=== PATIENT | female | born 1940 | race Two or more races ===

== ENCOUNTER 2025-09-28 13:43 | Emergency (ER) | payer OTHER ==
[~2025-09-28] VITALS: Ht 154.9 cm; Wt 54.9 kg
[~2025-09-28 13:43] MED LIST: CIPRO750 MG PO; CLONAZEPAM1 MG PO; DOCUSATE SODIU100 MG PO; METHYLPRED4 MG/DOSE- PO; NEURONTIN PO; PERCOCET 5/3251 TAB PO
[2025-09-28] MEDS ORDERED: ACETAMINOPHEN 500 MG GEL..CAP PO ONE ×2 (17:00→20:53)
[2025-09-28] MEDS ORDERED: IPRATROPIUM BROMIDE 0.5 MG/2.5 ML AMPUL.NEB IH SCH (17:00)
[2025-09-28] MEDS ORDERED: METHYLPREDNISOLONE SOD SUCC 125 MG VIAL IV ONE (17:00)
[2025-09-28] MEDS ORDERED: LEVALBUTEROL HCL 1.25 MG/3 ML SOLUTION IH SCH (17:00)
[2025-09-28] MEDS ORDERED: HYDROCODONE/CHLORPHEN P-STIREX 5 ML ML PO ONE (17:00)
[2025-09-28] MEDS ORDERED: METHYLPREDNISOLONE SOD SUCC 125 MG VIAL ONE (20:50)
[2025-09-28 21:11] LABS: BASO % 0.4 % (0.1-1.2); EOS # 0.18 (0.04-0.54); EOS % 2.4 % (0.7-7.0); LYMPH # 1.40 (1.18-3.74); LYMPH % 18.7 % (19.3-53.1); MEAN PLATELET VOLUME 10.40 fl (9.4-12.4); MONO # 0.78 (0.24-0.82); MONO % 10.4 % (4.7-12.5); NEUT # 5.09 (1.56-6.13); NEUT % 67.8 % (34.0-71.1); RED CELL DISTRIBUTION WIDTH 12.6 % (11.6-14.4)
[2025-09-28 21:14] LABS: ERYTHROCYTE SEDIMENTATION RATE 45 mm/hr (0-30)
[2025-09-28 22:09] LABS: ALT/SGPT 26.0 U/L (12-78); AST/SGOT 36.0 U/L (15-37); BILIRUBIN TOTAL 0.43 mg/dL (0.3-1.2); BUN CREA RATIO 22.0 (7.0-25.0); CREATININE SERUM 1.44 mg/dL (0.55-1.02); GFR 34.51; GLOBULINA 3.8 G/DL (2.4-3.5); GLUCOSE FASTING 143.0 mg/dL (65-100); OSMOLALITY SERUM 279.0 MOSM/KG (275-295)
[2025-09-28] MEDS ORDERED: LEVALBUTEROL HCL 1.25 MG/3 ML SOLUTION IH ONE (22:15)
[2025-09-28] MEDS ORDERED: IPRATROPIUM BROMIDE 0.5 MG/2.5 ML AMPUL.NEB IH ONE (22:16)
[2025-09-28 23:20] LABS: COVID-19 AG NEGATIVE (NEGATIVE)
[2025-09-28] MEDS ORDERED: XOPENEX CO1.25 MG/0. IH (23:35)
[2025-09-28] MEDS ORDERED: SINGULAIR10 MG PO (23:35)
[2025-09-28] MEDS ORDERED: MUCINEX DM ER1 EAC1 PO (23:35)
[2025-09-28] MEDS ORDERED: BUDESONIDE0.5 MG/2 M IH (23:35)
[2025-09-28] MEDS ORDERED: IPRATROPIU0.2 MG/1 M IH (23:35)
[2025-09-28] MEDS ORDERED: ZITHROMAX500 MG PO (23:35)
[2025-09-28] MEDS ORDERED: OSEL75CA PO (23:35)
== END 2025-09-29 00:29 | disposition home or self-care (01) ==
LOC: ER 13:44
PROVIDERS: General Practice
DX: J10.1 Influenza due to other identified influenza virus with other respiratory manifestations (principal); I10 Essential (primary) hypertension; E78.49 Other hyperlipidemia; Z20.822 Contact with and (suspected) exposure to COVID-19
CPT/HCPCS: 36415; 71046; 82803; 94640; 96365; 99284; J3490